=== PATIENT | male | born 1945 | race Caucasian/White ===

== ENCOUNTER → 2020-02-24 13:42 | Outpatient (BNVA) | payer MEDICARE, SELFPAY | PROVIDERS: PCP Internal Medicine; Visit Provider Urology | DX: Z76.89 Persons encountering health services in other specified circumstances (principal) | CPT/HCPCS: 99212 ==

== ENCOUNTER → 2020-08-17 13:35 | Outpatient (BNVA) | payer MEDICARE, SELFPAY | PROVIDERS: PCP Internal Medicine; Visit Provider Urology | DX: Z13.89 Encounter for screening for other disorder (principal) | CPT/HCPCS: Q3014 ==

== ENCOUNTER → 2021-05-04 13:27 | Outpatient (BNVA) | payer MEDICARE, SELFPAY | PROVIDERS: PCP Internal Medicine; Visit Provider Urology | DX: N40.1 Benign prostatic hyperplasia with lower urinary tract symptoms (principal); R97.20 Elevated prostate specific antigen [PSA] | CPT/HCPCS: Q3014 ==

== ENCOUNTER → 2021-11-16 09:25 | Outpatient (BNVA) | payer MEDICARE, SELFPAY | PROVIDERS: PCP Internal Medicine; Visit Provider Urology | DX: N40.1 Benign prostatic hyperplasia with lower urinary tract symptoms (principal); N13.8 Other obstructive and reflux uropathy; R97.20 Elevated prostate specific antigen [PSA]; N20.0 Calculus of kidney | CPT/HCPCS: Q3014 ==

== ENCOUNTER → 2022-05-21 08:29 | Outpatient (BNVA) | payer MEDICARE, SELFPAY | PROVIDERS: PCP Internal Medicine; Visit Provider Urology | DX: R97.20 Elevated prostate specific antigen [PSA] (principal); N20.0 Calculus of kidney | CPT/HCPCS: Q3014 ==

== ENCOUNTER → 2022-11-14 09:08 | Outpatient (BNVA) | payer MEDICARE, SELFPAY | PROVIDERS: PCP Internal Medicine; Visit Provider Urology | DX: N40.1 Benign prostatic hyperplasia with lower urinary tract symptoms (principal); N20.0 Calculus of kidney | CPT/HCPCS: Q3014 ==

== ENCOUNTER 2023-07-17 14:53 | Outpatient (AMB) | payer MEDICARE, SELFPAY ==
--- NOTE | 2023-07-17 15:17 | A.OFFVIS_ITS ---
Intake Intake Visit Reasons: 6m/PSA Intake Note: Patient presents today for a PSA follow-up Meds- Dutasteride Allergies to Antibiotic- Penicillin V Blood Thinner- None Post Void Residual:95ml Mammography Supervisor Required: No Accompanied by: Self / Same As Patient Allergies penicillin V Allergy (Unknown, Verified 07/17/23 15:34) Unknown Medication List - Last Reconciled 07/17/23 by Yamil Hough MD dutasteride 0.5 mg PO QWEEK 90 days HPI HPI Comments History of Present Illness Details Haider Christopher is a very pleasant male. He is a patient of Dr Babb. He is seen for the following urologic conditions. - elevated PSA - lower urinary tract symptoms PSA remains stable with use of dutasteride 1 tablet per week Would like to continue 6 month surveillance Stable urinary parameters Continue 6 monthly follow-up Elevated PSA/Abnormal ALFONZO: PSA fallen with dutasteride He presents for further evaluation of elevated PSA - Says current urinary performances amongst the best this pain. Feels very good about his bladder emptying.. Current management is dutasteride 1 tablet per week. Laboratory investigations include a total PSA evaluation 11/2014 7.5, 03/2016 5.5, free 25%, 10/02 T 4.9, F 25%, 10/03 5.7 F 26%, 10/04 5.1 F27% 10/05 6.6 , 04/07 - 4.4, 08/06 3.4, 05/08 4.9, 11/07 3.3, 05/09 4.8, 11/08 3.9, 03/10 3.9 Imaging - 05/09 Renal/Bladder US - 150gm prostate, small diverticulum His current IPSS IPSS Score 6 Symptoms include and are stable. Overall symptoms are mild. Therapeutic plan will be continued surveillance q6m. Nephrolithiasis/Urolithiasis: They are here for further evaluation of urethrolitiasis. They present for evaluation of back pain none flank pain none abdominal pain none The pain is characterized by non-radiating Yes Urolithiasis was diagnosed a few years ago 2014. The patient previously had kidney stones whose composition w unknown. Laboratory investigations include no recent labs. 24 Hour urine evaluation none on file. Prior treatment(s) include left, ESWL, and, with dietary advice to increase fluids, decrease salt and watch protein intake. Prior imaging includes 10/03 , a renal ultrasound, left cysts 10/05 , a renal ultrasound, showing no evidence of stones, cysts bilateral. The stone's maximum size is <5mm. Hydronephrosis none. UA today shows <5.5. Current therapeutic plan will be to continue with imaging surveillance [facility] Medical History Bladder outlet obstruction Prostatitis Surgical History History of adenoidectomy History of tonsillectomy Review of Systems Const Denies chills and Denies fever(s) Card Reports no additional complaints and Denies syncope Resp Denies cough GI Denies abdominal pain and Denies heartburn Reports as per HPI and Denies change in libido Neuro Denies syncope Psych Denies change in libido Endo Denies change in libido Physical Exam Const General: cooperative, healthy appearing, comfortable and no acute distress Orientation/consciousness: patient oriented x3 HEENT Face and sinus: Yes normal facial exam Mouth: moist mucous membranes Neck Neck: Yes normal visual inspection, Yes full ROM and Yes trachea midline Chest Chest palpation & inspection: normal inspection of the chest Resp Effort & Inspection: normal respiratory effort, able to speak in complete sentences and no respiratory distress GI Inspection: Yes normal to inspection Back/Spine/Pelvis Cervical Spine: normal cervical lordosis Thoracic/Lumbar Spine: thoracic and lumbar spine normal to inspection Skin General skin exam: no rashes or lesions noted Neuro General: patient oriented x3, gait normal, tone normal and moves all extremities Extrem General: Yes normal to inspection and Yes capillary refill normal Office Procedures Post Void Residual Post Residual Void Post Void Residual (PVR): [id number] Void Residual by ultrasound Assessment & Plan Assessment & Plan (1) Nephrolithiasis: Code(s): N20.0 - Calculus of kidney (2) Elevated PSA: Code(s): R97.20 - Elevated prostate specific antigen [PSA] Plan Six-month follow-up Orders: Orders AMB Post Void Residual by ultrasound Today R33.9 - Retention of urine, unspecified Yamil Hough MD PSA,Total (Free>4and<10) 07/01/23 N40.1 - Benign prostatic hyperplasia with lower urinary tract symptoms, R97.20 - Elevated prostate specific antigen [PSA] Niecy Tamayo MD Prostate Specific Antigen 6 Months R97.20 - Elevated prostate specific antigen [PSA] Yamil Hough MD Patient Instructions: Imaging studies, laboratory and physical exam results were discussed and reviewed in detail. No major barriers to patient understanding were identified. An opportunity to ask questions regarding the treatment plan was provided. All questions were answered. The patient expressed understanding and agreement with the above treatment plan. The patient is aware they should contact our office by phone for worsening of their current condition or the appearance of new urologic symptoms. Compliance is encouraged with any medications and followup testing that is ordered. It is a privilege to participate in the urologic care of your patient. If you have any questions or concerns regarding treatment for the above conditions, or other urologic issues, please do not hesitate to contact me. The office telephone contact is [phone]. This note is constructed using voice recognition software. While every effort has been made to ensure accuracy plugman errors may have been included. Yours sincerely, Dr Yamil Hough MD, [facility] - Urology Providers of Expert, Compassionate Care for the Genitourinary System Coding Level of Care Code Est Pt Level 3 (90440) Diagnoses Nephrolithiasis N20.0 Elevated PSA R97.20 CPT Codes Post Residual Void - PVR CPT Code: 02804-Guln Void Residual by ultrasound ([id number])
== END 2023-07-17 15:53 | disposition home or self-care (01) ==
PROVIDERS: PCP Internal Medicine; Visit Provider Urology
DX: N20.0 Calculus of kidney (principal); R97.20 Elevated prostate specific antigen [PSA]
CPT/HCPCS: 99213

== ENCOUNTER → 2023-07-17 14:53 | Outpatient (BNVA) | payer MEDICARE, SELFPAY | PROVIDERS: PCP Internal Medicine; Visit Provider Urology | DX: R97.20 Elevated prostate specific antigen [PSA] (principal); N20.0 Calculus of kidney | CPT/HCPCS: 51798; 99212 ==

== ENCOUNTER 2024-01-08 09:20 | Outpatient (AMB) | payer MEDICARE, SELFPAY ==
--- NOTE | 2024-01-08 09:21 | A.OFFVIS_ITS ---
Intake Visit Reasons: 6M Follow Up-Elevated PSA(Set) Allergies penicillin V Allergy (Unknown, Verified 07/17/23 15:34) Unknown Medication List - Last Reconciled 01/08/24 by Yamil Hough MD dutasteride 0.5 mg PO QWEEK 90 days HPI Comments Details: Haider Christopher is a very pleasant male. He is a patient of Dr Babb. He is seen for the following urologic conditions. - elevated PSA - lower urinary tract symptoms Telemedicine Evaluation 15 min Consultation [employer] Theresa Video attempted Six-month follow-up PSA remains low 01/09 3.5 PSA remains stable with use of dutasteride 1 tablet per week Twelve month follow-up Elevated PSA/Abnormal ALFONZO: PSA fallen with dutasteride He presents for further evaluation of elevated PSA - Says current urinary performances amongst the best this pain. Feels very good about his bladder emptying. Current management is dutasteride 1 tablet per week. Laboratory investigations include a total PSA evaluation 11/2014 7.5, 03/2016 5.5, free 25%, 10/02 T 4.9, F 25%, 10/03 5.7 F 26%, 10/04 5.1 F27% 10/05 6.6 , 04/07 - 4.4, 08/06 3.4, 05/08 4.9, 11/07 3.3, 05/09 4.8, 11/08 3.9, 03/10 3.9, 01/09 3.5 Imaging - 05/09 Renal/Bladder US - 150gm prostate, small diverticulum His current IPSS IPSS Score 6 Symptoms include and are stable. Overall symptoms are mild. Therapeutic plan will be continued surveillance q6m. Nephrolithiasis/Urolithiasis: They are here for further evaluation of urethrolitiasis. They present for evaluation of back pain none flank pain none abdominal pain none The pain is characterized by non-radiating Yes Urolithiasis was diagnosed a few years ago 2014. The patient previously had kidney stones whose composition w unknown. Laboratory investigations include no recent labs. 24 Hour urine evaluation none on file. Prior treatment(s) include left, ESWL, and, with dietary advice to increase fluids, decrease salt and watch protein intake. Prior imaging includes 10/03 , a renal ultrasound, left cysts 10/05 , a renal ultrasound, showing no evidence of stones, cysts bilateral. The stone's maximum size is <5mm. Hydronephrosis none. UA today shows <5.5. Current therapeutic plan will be to continue with imaging surveillance [facility] Medical History Bladder outlet obstruction Prostatitis Surgical History History of adenoidectomy History of tonsillectomy Review of Systems Const All systems reviewed & are unremarkable except as noted in HPI and below Reports no additional complaints Resp Reports no additional complaints GI Reports no additional complaints Reports as per HPI Musc Reports no additional complaints Physical Exam Telemedicine evaluation Appropriate responses Regular breathing rate and rhythm HEENT Head: Yes normal to inspection Ears: hearing grossly normal bilaterally Eyes General: appearance normal, both eyes and all related structures Neck Neck: Yes normal visual inspection Chest Chest palpation & inspection: normal inspection of the chest Resp Effort & Inspection: normal respiratory effort and able to speak in complete sentences Telehealth Telehealth Telehealth Platform: [employer] Location of provider rendering services: practice address Location of patient: address on file Patient Identification confirmed using: Name, : Yes Telehealth method: video Patient verbally consented to treatment: Yes Patient verbally consented to billing insurance company: Yes Patient informed of any privacy concerns related to visit: Yes Minutes spent on Phone/Video with Pt.: 15 Assessment & Plan Assessment & Plan (1) Nephrolithiasis: Code(s): N20.0 - Calculus of kidney Category: Medical (2) BPH loc w urin obs/LUTS: Code(s): N40.1 - Benign prostatic hyperplasia with lower urinary tract symptoms Category: Medical (3) Elevated PSA: Code(s): R97.20 - Elevated prostate specific antigen [PSA] Category: Medical Plan One year follow-up PSA Orders: Orders Prostate Specific Antigen 364 Days R97.20 - Elevated prostate specific antigen [PSA] Patient Instructions: Imaging studies, laboratory and physical exam results were discussed and reviewed in detail. No major barriers to patient understanding were identified. An opportunity to ask questions regarding the treatment plan was provided. All questions were answered. The patient expressed understanding and agreement with the above treatment plan. The patient is aware they should contact our office by phone for worsening of their current condition or the appearance of new urologic symptoms. Compliance is encouraged with any medications and followup testing that is ordered. It is a privilege to participate in the urologic care of your patient. If you have any questions or concerns regarding treatment for the above conditions, or other urologic issues, please do not hesitate to contact me. The office telephone contact is [phone]. This note is constructed using voice recognition software. While every effort has been made to ensure accuracy drilling engineering manager errors may have been included. Yours sincerely, Dr Yamil Hough MD, [facility] - Urology Providers of Expert, Compassionate Care for the Genitourinary System Coding Level of Care Code Tele Est Pt Level 3 (58880) Complex EM visit Add On G2211 Diagnoses Nephrolithiasis N20.0 BPH loc w urin obs/LUTS N40.1 Elevated PSA R97.20
== END 2024-01-08 10:01 | disposition home or self-care (01) ==
LOC: HO.HUSH 09:20
PROVIDERS: PCP Internal Medicine; Visit Provider Urology
DX: N20.0 Calculus of kidney (principal); N40.1 Benign prostatic hyperplasia with lower urinary tract symptoms; R97.20 Elevated prostate specific antigen [PSA]
CPT/HCPCS: 99213; G2211

== ENCOUNTER → 2024-01-08 09:20 | Outpatient (BNVA) | payer MEDICARE, SELFPAY | PROVIDERS: PCP Internal Medicine; Visit Provider Urology ==

== ENCOUNTER 2025-01-12 13:30 | Outpatient (AMB) | payer MEDICARE, SELFPAY ==
--- NOTE | 2025-01-12 13:31 | A.OFFVIS_ITS ---
Intake Visit Reasons: 1y/PSA Intake Note: Patient presents today for a 1 yr follow up Labs done 12/25/24: PSA 3.9 Meds- Dutasteride Allergies to Antibiotic- Penicillin V Blood Thinner- None Informatics Developer Required: No Accompanied by: Self / Same As Patient Allergies penicillin V Allergy (Unknown, Verified 01/12/25 13:37) Unknown HPI Comments Details: Haider Christopher is a very pleasant male. He is a patient of Dr Babb. He is seen for the following urologic conditions. - elevated PSA - lower urinary tract symptoms Yearly follow-up PSA remains low 01/09 3.5, 01/10 3.9 PSA remains stable with use of dutasteride 1 tablet per week Follow-up next year with repeat PSA Elevated PSA/Abnormal ALFONZO: PSA fallen with dutasteride He presents for further evaluation of elevated PSA - Says current urinary performances amongst the best this pain. Feels very good about his bladder emptying. Current management is dutasteride 1 tablet per week. Laboratory investigations include a total PSA evaluation 11/2014 7.5, 03/2016 5.5, free 25%, 10/02 T 4.9, F 25%, 10/03 5.7 F 26%, 10/04 5.1 F27% 10/05 6.6 , 04/07 - 4.4, 08/06 3.4, 05/08 4.9, 11/07 3.3, 05/09 4.8, 11/08 3.9, 03/10 3.9, 01/09 3.5 Imaging - 05/09 Renal/Bladder US - 150gm prostate, small diverticulum His current IPSS IPSS Score 6 Symptoms include and are stable. Overall symptoms are mild. Therapeutic plan will be continued surveillance q6m. Nephrolithiasis/Urolithiasis: They are here for further evaluation of urethrolitiasis. They present for evaluation of back pain none flank pain none abdominal pain none The pain is characterized by non-radiating Yes Urolithiasis was diagnosed a few years ago 2014. The patient previously had kidney stones whose composition w unknown. Laboratory investigations include no recent labs. 24 Hour urine evaluation none on file. Prior treatment(s) include left, ESWL, and, with dietary advice to increase fluids, decrease salt and watch protein intake. Prior imaging includes 10/03 , a renal ultrasound, left cysts 10/05 , a renal ultrasound, showing no evidence of stones, cysts bilateral. The stone's maximum size is <5mm. Hydronephrosis none. UA today shows <5.5. Current therapeutic plan will be to continue with imaging surveillance [facility] Medical History Bladder outlet obstruction Prostatitis Surgical History History of adenoidectomy History of tonsillectomy Review of Systems Const Denies chills and Denies fever(s) Card Reports no additional complaints and Denies syncope Resp Denies cough GI Denies abdominal pain and Denies heartburn Reports as per HPI and Denies change in libido Neuro Denies syncope Psych Denies change in libido Endo Denies change in libido Physical Exam Const General: cooperative, healthy appearing, comfortable and no acute distress Orientation/consciousness: patient oriented x3 HEENT Face and sinus: Yes normal facial exam Mouth: moist mucous membranes Neck Neck: Yes normal visual inspection, Yes full ROM and Yes trachea midline Chest Chest palpation & inspection: normal inspection of the chest Resp Effort & Inspection: normal respiratory effort, able to speak in complete sentences and no respiratory distress GI Inspection: Yes normal to inspection Back/Spine/Pelvis Cervical Spine: normal cervical lordosis Thoracic/Lumbar Spine: thoracic and lumbar spine normal to inspection Skin General skin exam: no rashes or lesions noted Neuro General: patient oriented x3, gait normal, tone normal and moves all extremities Extrem General: Yes normal to inspection and Yes capillary refill normal Assessment & Plan Assessment & Plan (1) Nephrolithiasis: Code(s): N20.0 - Calculus of kidney Category: Medical (2) BPH loc w urin obs/LUTS: Code(s): N40.1 - Benign prostatic hyperplasia with lower urinary tract symptoms Category: Medical (3) Elevated PSA: Code(s): R97.20 - Elevated prostate specific antigen [PSA] Category: Medical Plan Twelve month follow-up Orders: Orders Prostate Specific Antigen 12 Months R97.20 - Elevated prostate specific antigen [PSA] Patient Instructions: This note is constructed using voice recognition software. While every effort has been made to ensure accuracy owner e commerce company errors may have been included. Imaging studies, laboratory and physical exam results were discussed and reviewed in detail. No major barriers to patient understanding were identified. An opportunity to ask questions regarding the treatment plan was provided. All questions were answered. The patient expressed understanding and agreement with the above treatment plan. The patient is aware they should contact our office by phone for worsening of their current condition or the appearance of new urologic symptoms. Compliance is encouraged with any medications and followup testing that is ordered. It is a privilege to participate in the urologic care of your patient. If you have any questions or concerns regarding treatment for the above conditions, or other urologic issues, please do not hesitate to contact me. The office telephone contact is [phone]. Sincerely, Dr Yamil Hough MD, [facility] - Urology Compassionate Specialist Care for the Genitourinary System Coding Level of Care Code Est Pt Level 4 (66114) Diagnoses Nephrolithiasis N20.0 BPH loc w urin obs/LUTS N40.1 Elevated PSA R97.20
== END 2025-01-12 14:35 | disposition home or self-care (01) ==
LOC: HO.HUSH 13:31
PROVIDERS: PCP Internal Medicine; Visit Provider Urology
DX: N20.0 Calculus of kidney (principal); N40.1 Benign prostatic hyperplasia with lower urinary tract symptoms; R97.20 Elevated prostate specific antigen [PSA]
CPT/HCPCS: 99214

== ENCOUNTER → 2025-01-12 13:30 | Outpatient (BNVA) | payer MEDICARE, SELFPAY | PROVIDERS: PCP Internal Medicine; Visit Provider Urology | DX: R97.20 Elevated prostate specific antigen [PSA] (principal); N40.1 Benign prostatic hyperplasia with lower urinary tract symptoms; N13.9 Obstructive and reflux uropathy, unspecified; N20.0 Calculus of kidney | CPT/HCPCS: 99212 ==